=== PATIENT | female | born 2000 | race Caucasian/White ===

== ENCOUNTER 2021-08-09 18:03 | Emergency (ER) | payer SELFPAY ==
--- NOTE | 2021-08-09 19:17 | HMH.EDUTC ---
[facility] [place] Condition on Discharge: Good Clinical Impression: Otitis media Qualifiers: Otitis media type: suppurative Chronicity: acute Laterality: right Recurrence: not specified as recurrent Spontaneous tympanic membrane rupture: without spontaneous rupture Qualified Code(s): H66.001 - Acute suppurative otitis media without spontaneous rupture of ear drum, right ear Disposition: Home, Self-Care Instructions: DI for Ear Pain-Adult Additional Instructions: use meds as directed and see pcp for follow up Prescriptions: Benzonatate [Benzonatate 100mg cap] 100 mg PO TID #21 cap Transmission Status: Received by [facility] cephALEXin [cephALEXin 500mg capsule*] 500 mg PO TID #30 cap Transmission Status: Received by [facility] predniSONE [Prednisone 20mg Tab] 20 mg PO BID #10 tab Transmission Status: Received by [facility] Referrals: Provider,Referral, MD [Primary Care Provider] - Medical Decision Making - Medical Records Medical records reviewed: Yes: I reviewed the patient's medical records. - Aly Inquiry Pt receiving controlled substance: No - Lab Data Lab results reviewed: Yes: I reviewed the patient's lab results. Vital Signs: 08/09/21 19:41 08/09/21 20:42 Temperature 98.2 F 98.2 F Temperature Source Oral Pulse Rate 113 H Pulse Rate [Left] 113 H Respiratory Rate 20 20 Blood Pressure 141/94 H Blood Pressure [Right Arm] 141/94 H Blood Pressure Mean [Right Arm] 109 02 Sat by Pulse Oximetry 113 H - Lab Data Lab Results 08/09/21 19:16: Influenza Type A Ag Negative, Influenza Type B Ag Negative 08/09/21 19:21: Group A Strep Rapid Negative Orders (Tests/Meds): ED MEDICATIONS Discontinued Medications Generic Name Dose Route Start Last Admin Trade Name Freq PRN Reason Stop Dose Admin Cephalexin HCl 500 mg 08/09/21 20:26 08/09/21 20:44 Cephalexin 500mg Capsule PO 08/09/21 20:27 500 mg ONCE ONE Administration Prednisone 20 mg 08/09/21 20:23 08/09/21 20:43 Prednisone 20mg Tab PO 08/09/21 20:24 20 mg ONCE ONE Administration Medical Decision Narrative: has rt otitis media (Franklin Morales) [facility] [place] - General Mode of Arrival: Ambulatory Source of Information: Patient, Parent(s), Medical Record Limitations: No Limitations Description of Symptoms (Recalled from Triage Doc. by RN): uri sx with cough and ear ache HEENT Symptoms (Recalled from RN notes): Yes Resp Symptoms (Recalled from RN notes): Yes Skin Symptoms (Recalled from RN notes): No GI/ Symptoms (Recalled from RN notes): No MS Symptoms (Recalled from RN notes): No Card Symptoms (Recalled from RN notes): No Other (Recalled from RN notes): No - History of Present Illness Onset (ago): day(s) Severity: moderate Associated symptoms: denies other symptoms Treatments prior to arrival: none - General Stated complaint: caugh&ears Time Seen by Provider: 08/09/21 19:17 - Related Data Previous Rx's Medication Instructions Recorded Benzonatate [Benzonatate 100mg 100 mg PO TID #21 cap 08/10/21 cap] cephALEXin [cephALEXin 500mg 500 mg PO TID #30 cap 08/10/21 capsule*] predniSONE [Prednisone 20mg 20 mg PO BID #10 tab 08/10/21 Tab] Allergies Allergy/AdvReac Type Severity Reaction Status Date / Time Penicillins Allergy Verified 08/09/21 20:03 [facility] History I have reviewed the patient's past medical history: Yes - Hepatitis A Screen Attestation statement:: This patient has been screened for Hepatitis A risk factors. ROS Obtained: Yes All systems reviewed & no additional complaints - Constitutional Constitutional: Denies fever(s) - Eyes Eyes: Denies change in vision - ENT Ears, Nose, Mouth, and Throat: Reports as per HPI, Reports otalgia, Reports nasal congestion, Reports sore throat - Cardiovascular Cardiovascular: Denies chest pain - Respiratory Respiratory: Denies shortness of breath - Gastro
[2021-08-09 19:32] LABS: Strep Scrn Group A (Rapid) Negative (Negative)
[2021-08-09 19:41] VITALS: BP 141/94; PULSE 113; RESP 20; TEMP 36.8; O2SAT 113; BMI 42.8
[2021-08-09 20:04] LABS: UTC Influenza A Antigen Negative (Negative); UTC Influenza B Antigen Negative (Negative)
[2021-08-09 20:42] VITALS: BP 141/94; PULSE 113; RESP 20; TEMP 36.8
== END 2021-08-09 20:55 | disposition home or self-care (01) ==
PROVIDERS: Emergency Provider Nurse Practitioner Family
DX: H66.001 Acute suppurative otitis media without spontaneous rupture of ear drum, right ear (principal); J02.9 Acute pharyngitis, unspecified; Z79.52 Long term (current) use of systemic steroids; Z88.0 Allergy status to penicillin
CPT/HCPCS: 87430; 87804; 99213; G0463

== ENCOUNTER → 2022-07-03 14:03 | Outpatient (CLI) | payer MEDICAID, SELFPAY ==
--- NOTE | 2022-07-03 14:13 | XR_ITS ---
FINAL REPORT CLINICAL HISTORY: PAIN, hx of cyst on dorsal wrist FINDINGS: RIGHT WRIST Three views demonstrate no acute fracture or dislocation. The visualized joint spaces are normally aligned. The joint spaces are intact. The soft tissues are unremarkable. IMPRESSION: No acute bony abnormality. Reviewed, Interpreted and Dictated by Jake Mojica MD Transcribed by Ely Rivera Authenticated and . [facility]
== END ==
PROVIDERS: PCP Nurse Practitioner Family; Visit Provider Nurse Practitioner Family
DX: M25.531 Pain in right wrist (principal)
CPT/HCPCS: 73110

== ENCOUNTER → 2022-10-30 15:04 | Outpatient (CLI) | payer MEDICAID, SELFPAY ==
--- NOTE | 2022-10-30 15:05 | MR_ITS ---
PROCEDURE INFORMATION: Exam: MR Right Upper Extremity Joint Without Contrast; Wrist Exam date and time: 10/30/2022 4:11 PM Age: 22 years old Clinical indication: Pain; Wrist; Right; Additional info: R/O tfcc tear. Posterior pain in wrist , no known injury TECHNIQUE: Imaging protocol: Magnetic resonance imaging of the right upper extremity without contrast. Exam focused on the wrist. COMPARISON: CR XR WRIST RT MIN 3V 07/03/2022 2:18 PM FINDINGS: Bones/joints: No fracture or suspicious marrow signal. Scapholunate ligament: Unremarkable. No tear. Lunotriquetral ligament: Unremarkable. No tear. Triangular fibrocartilage complex: The TFCC is intact. No other internal derangement. Flexor compartment tendons: Unremarkable. No tear. Extensor compartment tendons: Unremarkable. No tear. Soft tissues: Unremarkable. IMPRESSION: 1. No fracture or suspicious marrow signal. 2. The TFCC is intact. No other internal derangement.
== END ==
PROVIDERS: PCP Nurse Practitioner Family; Visit Provider Orthopaedic Surgery
DX: M25.531 Pain in right wrist (principal)
CPT/HCPCS: 73221

== ENCOUNTER 2022-11-07 15:33 | Outpatient (RCR) | payer MEDICAID, SELFPAY | END 2022-11-07 16:30 | disposition home or self-care (01) | LOC: OT 15:33 | PROVIDERS: Visit Provider Orthopaedic Surgery | DX: S63.501A Unspecified sprain of right wrist, initial encounter (principal) | CPT/HCPCS: 97763 ==

== ENCOUNTER → 2022-12-09 07:41 | Outpatient (CLI) | payer MEDICAID, SELFPAY ==
--- NOTE | 2022-12-09 07:52 | US_ITS ---
FINAL REPORT CLINICAL HISTORY: RUQ PAIN COMPARISON: None FINDINGS: Sonographic images of the right upper quadrant were obtained. The pancreas is partially obscured. There is slight increased echogenicity of the liver parenchyma compatible with mild fatty infiltration of the liver. Multiple gallstones are present in the gallbladder. There is no evidence of biliary ductal dilatation.The common duct measures 4mm. Limited images of the right kidney are unremarkable. IMPRESSION: Multiple gallstones. Mild fatty infiltration of the liver. Reviewed, Interpreted and Dictated by Jake Mojica MD Transcribed by Rachel Stallings Authenticated and [facility]
== END ==
PROVIDERS: PCP Nurse Practitioner Family; Visit Provider Nurse Practitioner Family
DX: R10.11 Right upper quadrant pain (principal)
CPT/HCPCS: 76705

== ENCOUNTER → 2022-12-31 10:56 | Outpatient (CLI) | payer MEDICAID, SELFPAY ==
[2022-12-31 11:35] LABS: Basophils # 0.1 K/mm3 (0-0.2); Basophils % 0.7 % (0.1-2.0); Eosinophils # 0.2 K/mm3 (0.0-0.4); Eosinophils % 1.8 % (0.1-12.0); Lymphocytes # 3.5 K/mm3 (0.7-4.5); Lymphocytes % 33.5 % (10-50); Mean Corpuscular HGB Conc 31.2 g/dL (31.8-35.4); Mean Corpuscular Hemoglobin 29.3 pg (27.0-31.2); Mean Corpuscular Volume 94.1 fl (81-99); Mean Platelet Volume 8.3 fl (7.4-10.4); Monocytes # 0.4 K/mm3 (0.1-1.0); Monocytes % 3.8 % (1.7-9.3); Neutrophils # 6.4 K/mm3 (1.8-7.8); Neutrophils % 60.2 % (37.0-80.0); Platelet Count 765 K/mm3 (142-424); Red Blood Count 4.78 M/mm3 (4.20-5.40); Red Cell Distribution Width 13.1 % (11.5-17.5); White Blood Count 10.6 K/mm3 (4.8-10.8)
[2022-12-31 12:06] LABS: Chloride 107 mmol/L (98-107); Potassium 5.3 mmoL/L (3.5-5.1); Sodium 141 mmol/L (136-145)
[2022-12-31 12:08] LABS: Alanine Aminotransferase 30 U/L (12-78); Aspartate Amino Transferase 22 U/L (14-36); Blood Urea Nitrogen 13 mg/dl (7-17); Estimated Glomerular Filt Rate 104 ml/min (>60); GFR (African American) 125 ML/MIN (>60)
[2022-12-31 12:09] LABS: Albumin/Globulin Ratio 1.5 (1.1-1.8); Alkaline Phosphatase 80 U/L (38-126); Anion Gap 13.3 mEq/L (5-15); Bilirubin,Total 0.4 mg/dl (0.2-1.3); Calcium 9.3 mg/dl (8.4-10.2); Carbon Dioxide 26 mmol/L (22.0-30.0); Globulin 2.6 g/dL (1.3-3.2); Glucose 96 mg/dl (74-100); Total Protein,Serum 6.6 g/dl (6.3-8.2)
== END ==
PROVIDERS: PCP Nurse Practitioner Family; Visit Provider Surgery
DX: K80.20 Calculus of gallbladder without cholecystitis without obstruction (principal)
CPT/HCPCS: 36415; 80053; 85025

== ENCOUNTER 2023-01-06 09:27 | Day surgery (SDC) | payer MEDICAID, SELFPAY ==
[2023-01-03 10:04] VITALS: BMI 38.7
[2023-01-06] VITALS (11 sets, daily range): BP systolic 100–131; BP diastolic 66–84; PULSE 67–90; RESP 16–24; TEMP 36.1–43; O2SAT 92–100
[2023-01-06 09:40] LABS: Urine Pregnancy, HCG Qual. Negative (Negative)
--- NOTE | 2023-01-06 09:53 | EXP.ANES.CKL ---
[facility] Disclaimer: The information contained in this section may have been updated after the patient was seen, as this information can be updated by other users. Medical History (Updated 01/03/23 @ 10:03 by Chris Ramos RN) Pre-diabetes Surgical History (Updated 01/03/23 @ 10:03 by Chris Ramos RN) No history of previous surgery Family History (Updated 01/03/23 @ 10:04 by Chris Ramos RN) Other Family history of cancer Family history of diabetes mellitus Family history of heart disease Social History (Updated 01/03/23 @ 10:00 by Chris Ramos RN) Smoking Status: Never smoker alcohol intake: never substance use type: denies use current occupational status: employed Travel in the last 8 weeks: None [facility] Anesthesia Checklist Patient Identification Patient Identification: Arm Band Structural Data Admitted From: Home Planned Operative Procedure/s: Laparoscopic cholecystectomy Consent for Planned Operative Procedure(s) Verified: Yes Verified Documents: Surgical Consent and History and Physical NPO Status Verified Time NPO: 00:00 Additional verifications Anesthesia Reactions: No Hx Blood Transfusions: No Airway Assessment Mallampati Score:: Class II C-Spine Mobility Assessed: Yes TMJ Mobility Assessed: Yes Dentition: Good Dentition Neurological Assessment Level of Consciousness: Awake and Alert Anesthesia Plan Anesthesia Risk discussed: Yes Anesthesia Plan: Verified ASA Class: II Anesthesia Type: General
[2023-01-06 10:12] LABS: POC Glucose,Bedside 96 (70-110)
--- NOTE | 2023-01-06 11:58 | EXP.OP.NOTE ---
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 She had previously lived in [place] years ago and had some symptoms consistent with gallbladder was told that she would likely need her gallbladder removed at some point after evaluation had been done. She has had onset of symptoms in the past most severe with foods such as [employer] pizza and [employer] chips. She describes symptoms in the right thoracoabdominal area from the back around to her right upper quadrant. Does have some ongoing discomfort and has occasional exacerbations not always related to eating. She states I keep heartburn from it . She describes foods that are spicy to be more problematic. She underwent gallbladder ultrasound on 12/09/2022 which reveals multiple gallstones. I had performed cholecystectomy on her mother couple years ago. 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 When patient was seen in the office as a consultation the options were discussed with her. She wished to pursue cholecystectomy. Nature and details of the proposed procedure along with associated risks and expected outcome were explained to the patient. She understood and consented for surgery. Operative findings:: She has some mild fatty infiltration of the liver. She had a distended somewhat thickened gallbladder with a few omental adhesions. Gallbladder was packed full of multiple gallstones mostly small but there was at least 1 rather large gallstone. Operative note:: Patient was taken the operating room. She was given preoperative intravenous antibiotics. In the operating room she is placed in a supine position. General anesthesia was induced via endotracheal tube. Abdomen was prepped and draped in the standard surgical fashion. Subumbilical incision was made. Dissection was carried down to the fascia. While performing abdominal wall lift Veress needle was inserted. CO2 pneumoperitoneum was achieved to 15 mmHg. 11 mm optical trocar was inserted at the umbilicus. Intraperitoneal contents were visualized. She was positioned in reverse Trendelenburg and left side down. A couple of 5 mm trocars were inserted in the right upper abdomen. 11 mm trocar was inserted in the epigastrium. Gallbladder was identified and grasped retracted anteriorly and superiorly over the dome of the liver. There were some omental adhesions to the gallbladder which were taken down using blunt dissection. Upon reaching the body and particular the neck of the gallbladder distended gallbladder was packed for multiple gallstones. Infundibulum of the gallbladder is retracted anterior laterally. Prolonged dissection was carried out the neck of the gallbladder incising the visceral peritoneum. Ultimately after some careful meticulous dissection the cystic duct and cystic artery were clearly identified and isolated. There is some minor oozing from tiny veins on the cystic duct and Surgicel was temporarily placed to allow for hemostasis such that ongoing dissection could be performed. Ultimately the cystic duct and cystic artery were clearly identified. Cystic duct was multiply clipped and sharply divided. Cystic artery was carefully coagulated with JNOA ultrasonic robotic anderson and divided. Gallbladder was dissected free from the liver in a retrograde fashion using JONA ultrasonic harmonic anderson. Gallbladder was placed within an Endo Catch retrieval device and removed from the peritoneal cavity via the umbilical trocar site which required some extension of the fascial incision and skin incision for delivery of the distended gallbladder with numerous gallstones. Gallbladder fossa wa
[2023-01-06 12:23] LABS: POC Glucose,Bedside 106 (70-110)
--- NOTE | 2023-01-06 12:24 | P.PNANES_ITS ---
[facility] Anesthesia Record Part I Anesthesia Record I Intake, IV Amount: 700 Hydration: Adequate Estimated blood loss (mL): 30 Urine output (mL): 0 Blood Products used (#): none Blood Pressure: 123/66 SaO2: 96 Pulse Rate: 90 Airway Patency: Patent Respiratory Rate: 24 Temperature: 97.4 F Patient is:: Drowsy and Stable Stable to PACU at:: 12:10
--- NOTE | 2023-01-06 13:01 | SUR.PHASEI ---
1228 Pt's PIV stopped working and catheter was hanging out of arm. WILLIE Huang inserted a 22g PIV in pt's RFA. 1255- Bedside report given to WILLIE Nelson at this time
--- NOTE | 2023-01-07 07:08 | P.PNANES_ITS ---
[facility] Anesthesia Record Part II Anesthesia Record Part II Discharge Time: 12:50 Destination: Surgical Day Care (OP Surgery) PACU nurse assessment reviewed?: Yes Patient Condition:: Good Anesthesia Complications:: None Swallowing reflex intact?: Yes Airway Patency: Patent Cyanosis?: No Blood Pressure: 114/76 SaO2: 99 Respiratory Rate: 24 Pulse Rate: 74 Temperature: 97.1 F Mental Status: Alert & Oriented Pain level:: 5 Nausea and/or vomitting:: None Intake, IV Amount: 0 Hydration: Adequate
[2023-01-07 07:09] VITALS: BP 114/76; PULSE 74; RESP 24; TEMP 36.2; O2SAT 99
== END 2023-01-06 13:25 | disposition home or self-care (01) ==
PROVIDERS: PCP Nurse Practitioner Family; Visit Provider Surgery
PROC: 0FT44ZZ Resection of Gallbladder, Percutaneous Endoscopic Approach (ICD-10-PCS; CPT 47562; principal; 2023-01-06 11:15)
DX: K80.10 Calculus of gallbladder with chronic cholecystitis without obstruction (principal); E11.9 Type 2 diabetes mellitus without complications
CPT/HCPCS: 47562; 81025; 82962; 96374; J2405

== ENCOUNTER → 2023-01-23 09:40 | Outpatient (CLI) | payer MEDICAID, SELFPAY ==
[2023-01-23 10:14] LABS: Basophils # 0.1 K/mm3 (0-0.2); Basophils % 0.5 % (0.1-2.0); Eosinophils # 0.2 K/mm3 (0.0-0.4); Eosinophils % 1.3 % (0.1-12.0); Hemoglobin 14.1 g/dL (12.2-16.2); Lymphocytes # 3.2 K/mm3 (0.7-4.5); Lymphocytes % 23.6 % (10-50); Mean Corpuscular HGB Conc 33.6 g/dL (31.8-35.4); Mean Corpuscular Hemoglobin 31.1 pg (27.0-31.2); Mean Corpuscular Volume 92.4 fl (81-99); Monocytes # 0.6 K/mm3 (0.1-1.0); Monocytes % 4.1 % (1.7-9.3); Neutrophils # 9.4 K/mm3 (1.8-7.8); Neutrophils % 70.4 % (37.0-80.0); Platelet Count 598 K/mm3 (142-424); Red Blood Count 4.54 M/mm3 (4.20-5.40); White Blood Count 13.4 K/mm3 (4.8-10.8)
[2023-01-23 18:49] LABS: Ferritin 101 ng/ml (6.24-137)
[2023-01-23 19:11] LABS: Iron 97 ug/dL (37-170)
[2023-01-23 19:22] LABS: Total Iron Binding Capacity 290 ug/dL (265-497)
== END ==
PROVIDERS: PCP Nurse Practitioner Family; Visit Provider Internal Medicine Medical Oncology
DX: D50.9 Iron deficiency anemia, unspecified (principal)
CPT/HCPCS: 36415; 82728; 83540; 83550; 85025

== ENCOUNTER → 2023-02-19 14:12 | Outpatient (CLI) | payer MEDICAID, SELFPAY ==
[2023-02-19 14:41] LABS: Basophils # 0.1 K/mm3 (0-0.2); Basophils % 0.6 % (0.1-2.0); Eosinophils # 0.2 K/mm3 (0.0-0.4); Eosinophils % 1.5 % (0.1-12.0); Hematocrit 42.8 % (37.0-47.0); Hemoglobin 14.1 g/dL (12.2-16.2); Lymphocytes % 31.3 % (10-50); Mean Corpuscular HGB Conc 32.9 g/dL (31.8-35.4); Mean Corpuscular Hemoglobin 30.9 pg (27.0-31.2); Mean Corpuscular Volume 93.9 fl (81-99); Mean Platelet Volume 7.9 fl (7.4-10.4); Monocytes # 0.6 K/mm3 (0.1-1.0); Monocytes % 4.8 % (1.7-9.3); Neutrophils # 7.8 K/mm3 (1.8-7.8); Neutrophils % 61.8 % (37.0-80.0); Platelet Count 642 K/mm3 (142-424); Red Blood Count 4.56 M/mm3 (4.20-5.40); Red Cell Distribution Width 13.1 % (11.5-17.5); White Blood Count 12.6 K/mm3 (4.8-10.8)
== END ==
PROVIDERS: PCP Nurse Practitioner Family; Visit Provider Internal Medicine Medical Oncology
DX: D75.839 Thrombocytosis, unspecified (principal)
CPT/HCPCS: 36415; 85025

== ENCOUNTER 2023-05-09 13:48 | Outpatient (CLI) | payer MEDICAID, SELFPAY | END 2023-05-09 23:59 | LOC: RT 13:49 | PROVIDERS: PCP Nurse Practitioner Family; Visit Provider Nurse Practitioner Family | DX: R00.0 Tachycardia, unspecified (principal) | CPT/HCPCS: 93225 ==

== ENCOUNTER 2023-06-05 13:48 | Outpatient (CLI) | payer MEDICAID, SELFPAY ==
[2023-06-05 14:28] LABS: Anion Gap 10.3 mEq/L (5-15); Blood Urea Nitrogen 13 mg/dl (7-17); Calcium 9.6 mg/dl (8.4-10.2); Carbon Dioxide 31 mmol/L (22.0-30.0); Chloride 104 mmol/L (98-107); Estimated Glomerular Filt Rate 78 ml/min (>60); GFR (African American) 94 ML/MIN (>60); Glucose 106 mg/dl (74-100); Potassium 4.3 mmoL/L (3.5-5.1); Sodium 141 mmol/L (136-145)
[2023-06-05 14:45] LABS: Free T4 (Free Thyroxine) 1.14 ng/dl (0.78-2.19)
[2023-06-05 15:00] LABS: Thyroid Stimulating Hormone 2.72 uIU/mL (0.465-4.68)
== END 2023-06-05 23:59 ==
LOC: LAB 13:48
PROVIDERS: PCP Nurse Practitioner Family; Visit Provider Nurse Practitioner
DX: R00.2 Palpitations (principal); I47.10 Supraventricular tachycardia, unspecified; K21.9 Gastro-esophageal reflux disease without esophagitis
CPT/HCPCS: 36415; 80048; 84439; 84443; 93270

== ENCOUNTER 2023-06-19 11:35 | Outpatient (CLI) | payer MEDICAID, SELFPAY ==
--- NOTE | 2023-06-19 11:37 | CA_ITS ---
APPROVED REPORT EXAM: Comprehensive 2D, Doppler, and color-flow Echocardiogram [employer] Attendant: Yandy Eid RVT Ht: 5 ft 2 in Wt: 243lbs BSA: 2.08 BP: 126/81 mmHg Indications: SVT,PALPS 2D Dimensions LA Volume 63.00 mL LA Volume Index 30.29 mL/m2 (M/F) 16-34 M-Mode Dimensions RVDd 3.53 cm (0.9-2.6) LA Diam 3.75 cm (1.9-4.0) LVDd 4.96 cm (3.5-5.7) LVDs 3.07 cm (3.5-5.7) IVSd 0.71 cm (0.6-1.1) PWd 0.50 cm (0.6-1.1) EF (Teich) 68.10% FS 38.10% EDV (Teich) 116.10 mL TAPSE 2.56 (<1.7) ESV (Teich) 37.00 mL LV Diastology E Decel Time 230 (160-240 msec) E/A Ratio 1.6 Aortic Valve DINESH Index 1.22 cm2/m2 AoV Peak Barrington. 153.0 (50-130 cm/s) AO Peak GR. 9.40 mmHg AO Mean GR. 5.40 (<5 mmHg) AO VTI 28.8 (18-25 cm) DINESH (VTI) 2.59 (2.5-4.5 cm2) Mitral Valve MV E Max Barrington. 123.0 (40-130 cm/s) MV A Velocity 77.0 (40-130 cm/s) E/A Ratio 1.59 MV PHT 67.0 ms Pulmonary Valve PV Peak Velocity 101.0 (50-150 cm/s) Tricuspid Valve TR P. Velocity 158.00 cm/s RAP Estimate 10.00 mmHg RVSP 19.90 mmHg Left Ventricle The left ventricle is normal size. The left ventricular systolic function is normal. The left ventricular ejection fraction is within the normal range. There is normal left ventricular wall thickness. There is normal LV segmental wall motion. The left ventricular diastolic function is normal. LVEF is 55%. Right Ventricle The right ventricle is normal size. The right ventricular systolic function is normal. Atria The left atrium size is normal. The right atrium size is normal. There is no Doppler evidence of interatrial shunt. Aortic Valve The aortic valve opens well. There is no aortic valvular stenosis. No aortic regurgitation is present. Mitral Valve The mitral valve is normal in structure. No evidence of mitral valve stenosis. There is no mitral valve regurgitation noted. Tricuspid Valve The tricuspid valve leaflets are thin and pliable. Trace tricuspid regurgitation. There is insufficient TR jet to estimate RVSP. Pulmonic Valve The pulmonary valve is normal in structure. Trace pulmonic regurgitation. Great Vessels The aortic root is normal in size. The ascending aorta is normal in size. IVC is normal in size and collapses >50% with inspiration. Pericardium There is no pericardial effusion. Other Information Study Quality: Adequate Conclusion Normal biventricular systolic function. No significant valvular stenosis or regurgitation. Electronically signed by : Catie Terrell MD 06/22/2023 20:47:32
== END 2023-06-19 23:59 ==
LOC: RT 11:36
PROVIDERS: PCP Nurse Practitioner Family; Visit Provider Nurse Practitioner
DX: I47.19 Other supraventricular tachycardia (principal); R00.2 Palpitations
CPT/HCPCS: 93306

== ENCOUNTER → 2023-09-05 06:02 | Outpatient (CLI) | payer MEDICAID, SELFPAY | LOC: SL 06:02 | PROVIDERS: PCP Nurse Practitioner Family; Visit Provider Nurse Practitioner | DX: G47.33 Obstructive sleep apnea (adult) (pediatric) (principal) | CPT/HCPCS: 95806 ==

== ENCOUNTER 2024-06-24 11:53 | Outpatient (CLI) | payer MEDICAID, SELFPAY ==
--- NOTE | 2024-06-24 11:58 | XR_ITS ---
FINAL REPORT CLINICAL HISTORY: PAIN, fell on wrist 1-2 weeks ago COMPARISON: None FINDINGS: RIGHT WRIST Three views demonstrate no acute fracture or dislocation. The bones are well mineralized. The visualized joint spaces are normally aligned. The soft tissues are unremarkable. IMPRESSION: No acute bony abnormality. Reviewed, Interpreted and Dictated by Jake Mojica MD Transcribed by Goldie Solano Authenticated and . [facility]
== END 2024-06-24 23:59 | disposition home or self-care (01) ==
LOC: RAD 11:54
PROVIDERS: PCP Nurse Practitioner Family; Visit Provider Nurse Practitioner Family
DX: M25.531 Pain in right wrist (principal)
CPT/HCPCS: 73110